=== PATIENT | male | born 1940 | race Caucasian/White ===

== ENCOUNTER → 2023-12-22 13:06 | Outpatient (REF) | payer MEDICARE, OTHER, SELFPAY | LOC: HWRAD 13:06 | PROVIDERS: ATTENDING PHYSICIAN Student in an Organized Health Care Education/Training Program | DX: M54.50 Low back pain, unspecified (principal); R20.0 Anesthesia of skin; E55.9 Vitamin D deficiency, unspecified | CPT/HCPCS: 72110 ==

== ENCOUNTER → 2024-01-18 06:34 | Outpatient (REF) | payer MEDICARE, OTHER, SELFPAY | LOC: MRI 06:34 | PROVIDERS: ATTENDING PHYSICIAN Student in an Organized Health Care Education/Training Program; FAMILY PHYSICIAN Family Medicine | DX: R20.0 Anesthesia of skin (principal); M54.50 Low back pain, unspecified | CPT/HCPCS: 72148 ==

== ENCOUNTER → 2024-03-24 07:58 | Outpatient (REF) | payer MEDICARE, OTHER, SELFPAY ==
[2024-03-24 10:31] LABS: Hematocrit 45.5 % (39.0-52.0); Hemoglobin 15.8 g/dL (13.0-18.0); Mean Corp Hgb Conc. 34.7 g/dL (33.0-37.0); Mean Corpuscular Hgb 30.4 pg (27.0-31.0); Mean Corpuscular Volume 87.5 fL (80.0-94.0); Mean Platelet Volume 10.4 fL (7.4-10.4); Platelet Count 158 10^3/uL (130-400); Red Cell Dist. Width 13.8 % (11.5-14.5); White Blood Cell Count 6.6 10^3/uL (4.8-10.8)
[2024-03-24 11:01] LABS: ALT (SGPT) 31 U/L (0-50); AST (SGOT) 37 U/L (17-59); Albumin 4.7 g/dl (3.5-5.0); Alkaline Phosphatase 69 U/L (38-126); Blood Urea Nitrogen 20 mg/dl (9-20); Calcium 10.3 mg/dl (8.4-10.2); Carbon Dioxide 32 mmol/L (22-30); Chloride 100 mmol/L (98-107); Glucose 106 mg/dl (70-99); Potassium 4.3 mmol/L (3.5-5.1); Sodium 145 mmol/L (135-145); Total Bilirubin 0.8 mg/dl (0.2-1.3); Total Protein 7.1 g/dl (6.3-8.2); eGFR > 60.00
== END ==
LOC: SDSPAT 07:58
PROVIDERS: ATTENDING PHYSICIAN Orthopaedic Surgery Orthopaedic Surgery of the Spine; FAMILY PHYSICIAN Family Medicine
DX: Z01.818 Encounter for other preprocedural examination (principal)
CPT/HCPCS: 36415; 80053; 85027; 86850; 86900; 86901; 87070; 93005

== ENCOUNTER 2024-04-12 06:53 | Day surgery (SDC) | payer MEDICARE, OTHER, SELFPAY ==
[2024-03-24 08:16] VITALS: BMI 31.8
--- NOTE | 2024-04-05 14:03 | PTCARENOTE ---
Patients 03/24 ECG abnormal- reviewed by Dr. Rodríguez- no additional interventions required
[2024-04-05 14:04] VITALS: BMI 31.8
[2024-04-12] VITALS (7 sets, daily range): BP systolic 158–175; BP diastolic 72–97; BMI 31.8
[2024-04-12] MEDS: SKELAXIN 800 MG PO (10:12)
[2024-04-12] MEDS: TYLENOL 1000 MG PO (10:12)
[2024-04-12] MEDS: CELEBREX 200 MG PO (10:12)
[2024-04-12] MEDS: NORMOSOL-R/PLASMALYTE-A 1000 IV (10:12)
[2024-04-12] MEDS: LYRICA 150 MG PO (10:37)
[2024-04-12] MEDS: ULTRAM 50 MG PO (15:00)
== END 2024-04-12 15:30 | disposition home or self-care (01) ==
LOC: SDS 06:53
PROVIDERS: ATTENDING PHYSICIAN Orthopaedic Surgery Orthopaedic Surgery of the Spine; FAMILY PHYSICIAN Family Medicine
DX: M48.061 Spinal stenosis, lumbar region without neurogenic claudication (principal)
CPT/HCPCS: 63047; 72020; 86900; 86901

== ENCOUNTER → 2024-06-23 12:13 | Outpatient (REF) | payer MEDICARE, OTHER, SELFPAY | LOC: HWRAD 12:13 | PROVIDERS: ATTENDING PHYSICIAN Family Medicine | DX: N28.1 Cyst of kidney, acquired (principal) | CPT/HCPCS: 76775 ==